=== PATIENT | female | born 1945 | race Caucasian/White ===

== ENCOUNTER 2016-11-18 12:27 | Emergency (ER) | payer OTHER ==
[~2016-11-18] VITALS: Ht 160 cm; Wt 79.4 kg
[2016-11-18 14:04] LABS: HEMATOCRIT 35.9 % (36.0-46.0); MCH 26.7 PG (29.0-34.0); MCHC 31.8 G/DL (30.0-36.0); MCV 84.1 FL (83-99); MEAN PLAT.VOLUME 8.8 uM^3 (9.5-12.4); PLATELET COUNT 273 K/uL (156-360); RBC DIS.WIDTH-CV 13.9 % (11.8-14.6); RBC DIS.WIDTH-SD 42.7 % (39-53); RED BLOOD COUNT 4.27 M/uL (3.80-5.20); WHITE BLOOD COUNT 6.9 K/uL (4.1-10.2)
[2016-11-18 14:12] LABS: CHLORIDE 104 mEq/L (99-109); POTASSIUM 5.3 mEq/L (3.7-5.4); SODIUM 138 mEq/L (136-147)
[2016-11-18 14:14] LABS: GLUCOSE 175 mg/dL (70-99)
[2016-11-18 14:16] LABS: ANION GAP 9 MEQ/L (2-14)
[2016-11-18 14:18] LABS: GFR ESTIMATE (CALCULATED) > 59 mL/min/
[2016-11-18 14:19] LABS: UREA NITROGEN (BUN) 23 mg/dL (9-23)
[2016-11-18 14:25] LABS: TROP-I INTERPRETATION NEGATIVE; TROPONIN-I < 0.01 ng/mL (0.0-0.30)
[2016-11-18] MEDS ORDERED: ANTIVERT12.5 MG PO (15:02)
[2016-11-18 15:11] VITALS: BP 123/72
== END 2016-11-18 15:19 | disposition home or self-care (01) ==
LOC: EME 12:27
PROVIDERS: Nurse Practitioner Family
DX: R42 Dizziness and giddiness (principal); N39.0 Urinary tract infection, site not specified; E11.9 Type 2 diabetes mellitus without complications; E78.5 Hyperlipidemia, unspecified; I10 Essential (primary) hypertension; Z88.6 Allergy status to analgesic agent
CPT/HCPCS: 80048; 84484; 85027; 93005; 99281; 99284